=== PATIENT | male | born 1990 | race Caucasian/White ===

== ENCOUNTER 2020-02-12 21:51 | Emergency (ER) | payer SELFPAY ==
--- NOTE | 2020-02-12 23:30 | EDM.PDOC ---
ED HPI GENERAL MEDICAL PROBLEM - General Stated Complaint: MED CLEARANCE Time Seen by Provider: 02/12/20 23:20 - History of Present Illness INITIAL COMMENTS - FREE TEXT/NARRATIVE: HISTORY AND PHYSICAL: History of present illness: This is a 29-year-old gentleman with a history significant for anxiety who is brought into the ER today for medical clearance by [place] law enforcement. Per [place] law enforcement, patient was pulled over for DUI with a alcohol level of 0.225. Patient reports he has a history of severe anxiety that he self medicates with alcohol for. Patient reports that he drinks once a month. Patient reports no recent fevers, shakes, chills, nausea, vomiting, diarrhea, dysuria, frequency, urgency. Law enforcement had concerns regarding patient having episodes of breath-holding. During these episodes patient has not had any LOC. Patient is extremely tearful and appears to be upset in the ED. Patient is able to take deep breaths when requested to. Review of systems: As per history of present illness and below otherwise all systems reviewed and negative. Past medical history: As per history of present illness and as reviewed below otherwise noncontributory. Surgical history: As per history of present illness and as reviewed below otherwise noncontributory. Social history: No reported history of drug or alcohol abuse. Family history: As per history of present illness and as reviewed below otherwise nonc ontributory. Physical exam: Constitutional: Patient is oriented to person, place, and time. Appears well- developed and well-nourished. No distress. HEENT: Moist mucous membranes Head: Normocephalic and atraumatic Eyes: Right eye exhibits no discharge. Left eye exhibits no discharge. No scleral icterus Neck: Normal range of motion. No tracheal deviation present. Cardiovascular: Normal rate and regular rhythm. Pulmonary: Effort normal, no respiratory distress. No wheezing rales or rhonchi. Lungs clear Abdominal: No distention Musculoskeletal: Normal range of motion Neurologic: Alert and oriented to person, place and time. Skin: [place], warm and dry. Psychiatric: Tearful mood and affect. Behavior is normal. Diagnostics: EKG: Normal sinus rhythm heart rate of [address]-T wave abnormalities Normal axis No evidence of ST elevation [place] As interpreted by ER physician: Mady Assessment and plan: 29-year-old gentleman who presents ER today for medical clearance for [place] law enforcement. Patient is clinically hemodynamically stable. Patient vital signs are all within normal limits. Patient's pulse ox is 99% on room air. Patient's lungs are clear. Patient's EKG does not show any acute abnormalities. Patient was medically cleared for law enforcement. Reassessment at the time of disposition demonstrates that the patient is in no acute distress. The patient has remained stable throughout the entire ED visit and is without objective evidence for acute process requiring urgent intervention or hospitalization. The patient is stable for discharge, counseling is provided as documented above, discussed symptomatic treatment and specific conditions for return. I have spoken with the patient and discussed todays findings, in addition to providing specific details for the plan of care. Questions are answered and there is agreement with the plan. Definitive disposition and diagnosis as appropriate pending reevaluation and review of above. ED ROS GENERAL - Review of Systems Review Of Systems: See Below ED EXAM, GENERAL - Physical Exam Exam: See Below #1 Interpretation EKG Interpretation Comments: EKG: Normal sinus rhythm heart rate of [address]-T wave abnormalities Normal axis No evidence of ST elevation [place] As interpreted by ER physician: Mady Departure - Departure Time of Disposition: 23:29 Disposition: Home, Self-Care 01 Condition: Good Clinical Impression: Alcohol intoxication, Anxiety, Breath holding episodes, Medical clearance for incarceration - Discharge Information Instructions: Hyperventilation, Binge-Drinking Information, Adult, Living With Anxiety Referrals: PCP,None [Primary Care Provider] - Forms: ED Department Discharge Additional Instructions: The following information is given to patients seen in the emergency department who are being discharged to home. This information is to outline your options for follow-up care. We provide all patients seen in our emergency department with a follow-up referral. The need for follow-up, as well as the timing and circumstances, are variable depending upon the specifics of your emergency department visit. If you don't have a primary care physician on staff, we will provide you with a referral. We always advise you to contact your personal physician following an emergency department visit to inform them of the circumstance of the visit and for follow-up with them and/or the need for any referrals to a consulting specialist. The emergency department will also refer you to a specialist when appropriate. This referral assures that you have the opportunity for follow-up care with a specialist. All of these measure are taken in an effort to provide you with optimal care, which includes your follow-up. Under all circumstances we always encourage you to contact your private physician who remains a resource for coordinating your care. When calling for follow-up care, please make the office aware that this follow-up is from your recent emergency room visit. If for any reason you are refused follow-up, please contact the [facility] Emergency Department at and asked to speak to the emergency department charge nurse.
== END 2020-02-12 23:40 ==
LOC: MW.ED 21:51
DX: F41.9 Anxiety disorder, unspecified (principal); F10.129 Alcohol abuse with intoxication, unspecified; R06.89 Other abnormalities of breathing
CPT/HCPCS: 93005; 93010; 99282; 99284-25